=== PATIENT | male | born 1960 | race Two or more races ===

== ENCOUNTER 2016-09-24 09:00 | Observation (INO) | payer OTHER ==
[2016-09-24] MEDS ORDERED: Aspirin Low Dose CHEW TAB* 81 MG PO ONE (09:09)
[2016-09-24 09:28] LABS: Hematocrit 42 % (42-52); Hemoglobin 13.8 g/dl (14.0-18.0); Mean Corpuscular HGB Conc 33 g/dl (31-36); Mean Corpuscular Hemoglobin 29 pg (27-31); Mean Corpuscular Volume 87 fL (80-94); Mean Platelet Volume 8 um3 (7.4-10.4); Red Blood Count 4.75 10^6/ul (4.0-5.4); Red Cell Distribution Width 13 % (10.5-15); White Blood Count 7.6 10^3/ul (3.5-10.8)
--- NOTE | 2016-09-24 09:50 | RAD ---
INDICATION: Dizziness COMPARISON: None TECHNIQUE: An AP portable view obtained at 0930 hours is submitted. FINDINGS: Bones/Soft Tissues: There are no acute bony findings. Cardiomediastinal: The cardiomediastinal silhouette is normal. Lungs: There are no infiltrates. Pleura: There are no pleural effusions. Other: None IMPRESSION: NO ACTIVE DISEASE.
[2016-09-24 10:01] LABS: Troponin I 0.01 ng/mL (<0.04)
[2016-09-24 10:02] LABS: Albumin 4.6 g/dL (3.2-5.2); BUN/Creatinine Ratio 21.1 (8-20); Calcium 9.8 mg/dL (8.6-10.3); EGFR African American 147.6 (>60); EGFR Non-African American 114.8 (>60); Globulin 3.1 g/dL (2-4); Potassium 3.5 mmol/L (3.5-5.0); Total Bilirubin 1.2 mg/dL (0.2-1.0); Total Protein 7.7 g/dL (6.4-8.9)
[2016-09-24] MEDS ORDERED: Ondansetron INJ* 2 MG/ML VIAL IV ONE (10:30)
[2016-09-24] MEDS ORDERED: Ondansetron INJ* 2 MG/ML VIAL ONE (10:31)
--- NOTE | 2016-09-24 11:06 | RAD ---
Indication: Dizziness. Associated nausea and vomiting. Comparison: No relevant prior exams available on the [facility] PACS for comparison. Technique: Noncontrast CT vertex of skull through foramen magnum. Report: The sulci, ventricles, and basal cisterns are normal for age. Toscano matter white matter differentiation is preserved without evidence for edema. No intra or extra axial hemorrhage, mass, or fluid collection detected. Unremarkable visualized orbital contents. Unremarkable calvarium and skull base. Unremarkable scalp. The visualized paranasal sinuses and mastoid air spaces are clear. IMPRESSION: Negative unenhanced head CT.
[2016-09-24] MEDS ORDERED: Meclizine TAB* 12.5 MG PO ONE (11:35)
[2016-09-24] MEDS ORDERED: Ondansetron ODT TAB* 4 MG SL PRN (13:39)
[2016-09-24] MEDS ORDERED: Meclizine TAB* 12.5 MG PO PRN (13:39)
[2016-09-24] MEDS ORDERED: NS 0.9% 1000 ML* 1,000 ML IV SCH (13:45)
[2016-09-24] MEDS ORDERED: Losartan TAB* 25 MG PO SCH (14:00)
[2016-09-24 16:46] VITALS: BP 135/75
--- NOTE | 2016-09-24 16:48 | RAD ---
Indication: Dizziness and vertigo. Image sequences: Sagittal and axial T1, axial T2, FLAIR, diffusion and susceptibility weighted images of the brain were obtained. Ventricular structures are midline. No midline shift is noted. The extraction spaces are unremarkable. Diffusion-weighted images demonstrates no restriction of diffusion. The FLAIR images demonstrates no evidence of vasogenic edema. No susceptibility artifact is noted on the susceptibility weighted images. The paranasal sinuses demonstrates minimal mucosal thickening of the maxillary sinuses bilaterally. Because retention cyst is noted in the right frontal sinus. Orbits are grossly unremarkable. IMPRESSION: No intracranial lesion are noted. Minimal mucosal thickening floor of the maxillary sinuses and mucous retention cyst in the right frontal sinus.
--- NOTE | 2016-09-24 16:50 | HP ---
CC: Dr. Isaacs HISTORY AND PHYSICAL/DISCHARGE SUMMARY: DATE OF ADMISSION: 09/24/16 PRIMARY CARE PHYSICIAN: Dr. Isaacs. CHIEF COMPLAINT: Dizziness, nausea, vomiting. HISTORY OF PRESENT ILLNESS: A 56-year-old male with past medical history of hypertension, diabetes, obstructive nephrolithiasis, who presents to the hospital with dizziness, nausea, and vomiting. The patient states he was in his usual state of health throughout the day yesterday. Around the evening, he was sitting down in his house and occasionally walking around when he felt progression of lightheadedness. He also noticed he felt a little bit off balance. This was followed by some nausea. He states he did not fall. He did not lose consciousness. He went to bed and said he slept well, but he did notice that with certain movements in bed it seemed to worsen his symptoms. Prior to bed, he checked his blood pressure, it was 160/100 followed by 160/89. This morning upon awakening, he noticed symptoms were still present. He had persistent nausea and this morning, he vomited twice after he drink a glass of milk. Emesis was not bloody. He attempted to brush his teeth and noticed that leaning forward seemed to worsen the symptoms and also caused worsening sensation of loss of balance. He states he has had a cough about 2 weeks ago which has been somewhat persistent. He denies any fever or chills. He has had some abdominal discomfort associated with the nausea and vomiting. No diarrhea. He denies any dysuria or bleeding. Symptoms were not associated with any chest pain, shortness of breath, sweating, or palpitations. Due to persistent symptoms, the patient came to the ED. He was evaluated by Dr. Cross who reported that a Brimfield-Hallpike maneuver was negative. He spoke with Dr. Angela, who recommended getting an MRI and observing the patient. PAST MEDICAL HISTORY: Hypertension, diabetes, obstructive nephrolithiasis. PAST SURGICAL HISTORY: Renal stent placement. HOME MEDICATIONS: 1. Metformin 750 mg by mouth 3 times daily. 2. Losartan 100 mg by mouth daily. 3. Actos 30 mg by mouth daily. 4. Atorvastatin 10 mg by mouth daily. ALLERGIES: The patient reports no known drug allergies. FAMILY HISTORY: He states is not remarkable for any medical problems. SOCIAL HISTORY: He never smoked cigarettes. He will have a beer very rarely. He denies any illicit drug use. 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 REVIEW OF SYSTEMS: A 12-point review of systems negative, except for that noted in the HPI. PHYSICAL EXAMINATION GENERAL: The patient is a middle-aged [place] male, lying in bed, in no apparent distress. VITAL SIGNS: On admission, temperature 97.8, heart rate 76, respiratory rate 19 , O2 saturation 100% on room air, initial blood pressure 176/100 followed by 145 /81. HEENT: Moist mucous membranes. Pupils are equal, round, and reactive to light and accommodation. Anicteric sclerae. LUNGS: Clear to auscultation bilaterally. No wheezes, rales, or rhonchi. CARDIOVASCULAR: Regular rate and rhythm. S1, S2 heard. No murmurs, gallops or rubs. ABDOMEN: Soft, nontender, nondistended. Bowel sounds are positive. EXTREMITIES: No cyanosis, clubbing, or edema. NEUROLOGIC: The patient is alert and oriented x3. No focal neurological deficits. No nystagmus noted on exam. I did not repeat Silvana-Hallpike maneuver. LABS AND DIAGNOSTICS: White blood cell count 7.6, hematocrit of 42, platelets of 259. Sodium 138, potassium 3.5, chloride of 101, carbon dioxide of 27, BUN 15, creatinine 0.71, glucose of 168. Lactic acid of 2.1. Total bilirubin of 1.2. LFTs are within normal limits. Troponin 0.00. EKG, personally reviewed, shows normal sinus rhythm. No acute ischemic changes. CT of the head is negative for any acute changes. Chest x-ray, personally reviewed, shows no acute disease. ASSESSMENT AND PLAN: Nausea, vomiting, and dizziness likely due to vertigo in a 56- year-old male with past medical history of hypertension, diabetes, and obstructive nephrolithiasis. 1. Nausea, vomiting, dizziness. The patient's symptoms seem more consistent with vertiginous symptoms rather than presyncopal. He seems to be responding well in the ED to meclizine. His nausea seems to be well controlled. He has eaten a sandwich down in the emergency department. He has also been ambulating fairly well. We will monitor the patient on the floor, give some IV fluids and continue supportive therapy with antiemetics. We will get an MRI of the brain to rule out possible CVA responsible for the patient's symptoms, seems like this is more of a peripheral process. Continue low-dose meclizine as well. 2. Hypertension. Continue the patient's home losartan. 3. Diabetes. Continue metformin. Hold on Actos. 4. Hyperlipidemia. Continue home Lipitor. 5. DVT prophylaxis. Low risk, ambulate. 6. Code status: The patient is a full code. TIME SPENT: Total time spent on this admission 40 minutes, with over half the time spent [id number] with the patient, counseling and coordinating care. ADDENDUM: MRI reviewed, no signs of stroke. Patient with improvement in symptoms , tolerating PO, no further nausea. Will discharge home with rx for meclizine and will need to follow-up with PCP. [id number]/[facility] #: [id number] ADRIEN
[2016-09-25] MEDS ORDERED: Atorvastatin* 10 MG TAB PO SCH (09:00)
[2016-09-25] MEDS ORDERED: metFORMIN* 500 MG TAB PO SCH (09:00)
--- NOTE | 2016-09-27 07:27 | ED ---
sarah Dodd Timothy, scribed for Poli Cross MD on 09/24/16 at 0912 . Dizziness - HPI Summary HPI Summary: Nehemias Robles is a 56 yo male presenting to [facility] with dizziness since 09/23/16 evening at rest; when he awoke this morning he had nausea and vomited 2x. He states he had no difficulty sleeping. His dizziness has persisted , but he states the room is not spinning. He states his dizziness is worse when he stands up. He states this past winter he noticed pain in his right shoulder, but this has resolved. He is not in any current pain, and denies any blurred vision, slurred speech, diaphoresis, CP, SOB, fever, diarrhea, or any other Sx. He states he may have had some exposure to a family member with fever 09/20/16. He took his prescribed medications last night. His MHx includes kidney stones and DM. - History Of Current Complaint Chief Complaint: EDDizziness Stated Complaint: DIZZY Time Seen by Provider: 09/24/16 10:06 Hx Obtained From: Patient Onset/Duration: Still Present Timing: Constant Severity Initially: Moderate Severity Currently: Moderate Character: Dizzy Aggravating Factor(s): Supine To Erect Alleviating Factor(s): Rest Associated Signs And Symptoms: Positive: Nausea, Vomiting - Allergies/Home Medications Allergies/Adverse Reactions: Allergies Allergy/AdvReac Type Severity Reaction Status Date / Time Shellfish Allergy Allergy Itching Verified 12/22/13 15:24 PMH/Surg Hx/FS Hx/Imm Hx Endocrine/Hematology History: Reports: Hx Diabetes History: Reports: Hx Kidney Stones Infectious Disease History: Denies: Traveled Outside the [place] in Last 30 Days - Family History Known Family History: Negative: Cardiac Disease, Hypertension, Diabetes - Social History Alcohol Use: None Hx Substance Use: No Substance Use Type: Reports: None Hx Tobacco Use: No Smoking Status (MU): Never Smoked Tobacco Review of Systems Constitutional: Negative Negative: Fever, Chills, Skin Diaphoresis Eyes: Negative Negative: Erythema ENT: Negative Negative: Sore Throat Cardiovascular: Negative Negative: Palpitations, Chest Pain Respiratory: Negative Negative: Shortness Of Breath, Cough Positive: Vomiting, Nausea. Negative: Diarrhea Genitourinary: Negative Negative: dysuria, hematuria Musculoskeletal: Negative Negative: Edema - legs Skin: Negative Negative: Rash Neurological: Other - dizziness Psychological: Normal All Other Systems Reviewed And Are Negative: Yes Physical Exam - Summary Physical Exam Summary: Constitutional: Well-developed, Well-nourished, Alert. (-) Distressed Skin: Warm, Dry HENT: Eyes: Conjunctiva normal Neck: Musculoskeletal ROM normal neck. (-) JVD, (-) Stridor, (-) Tracheal deviation Cardio: Rhythm regular, rate normal, Heart sounds normal; Intact distal pulses; The pedal pulses are 2+ and symmetric. Radial pulses are 2+ and symmetric. (-) Murmur Pulmonary/Chest wall: Effort normal. (-) Respiratory distress, (-) Wheezes, (-) Rales Abd: Soft. (-) Tenderness, (-) Distension, (-) Guarding, (-) Rebound Musculoskeletal: (-) Edema Lymph: (-) Cervical adenopathy Neuro: Alert, Oriented x3, Strength normal, Cranial nerves II-XII are grossly intact. (-) Dysmetria, (-) Nystagmus, (-) Ataxia by finger to nose testing, (-) Sensory deficit. Negative Rhonberg. Psych: Mood and affect Normal Triage Information Reviewed: Yes Vital Signs On Initial Exam: Initial Vitals Temp Pulse Resp BP Pulse Ox 97.8 F 76 19 176/100 100 09/24/16 09:04 09/24/16 09:04 09/24/16 09:04 09/24/16 09:04 09/24/16 09:04 Vital Signs Reviewed: Yes Diagnostics - Vital Signs Vital Signs Temp Pulse Resp BP Pulse Ox 09/24/16 09:04 97.8 F 76 19 176/100 100 - Laboratory Result Diagrams: 09/24/16 09:12 09/24/16 09:12 Lab Statement: Any lab studies that have been ordered have been reviewed, and results considered in the medical decision making process. - Radiology CXR Xray Interpretation: No Acute Changes - IMPRESSION: NO ACTIVE DISEASE. Radiology Interpretation Completed By: Radiologist - CT brain CT Interpretation: No Acute Changes - IMPRESSION: Negative unenhanced head CT. 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: Both Correctly Best Gaze (Only Horizontal Eye Movement): Normal Visual Field Testing: No Visual Loss Facial Paresis-Pt to Smile & Close Eyes or Grimace Symmetry: Normal/Symmetrical Motor Function - Right Arm: No Drift-Holds 10 Seconds Motor Function - Left Arm: No Drift-Holds 10 Seconds Motor Function - Right Leg: No Drift-Holds 10 Seconds Motor Function - Left Leg: No Drift-Holds 10 Seconds Limb Ataxia-Must be out of Proportion to Weakness Present: Absent Sensory (Use Pinprick to Test Arms/Legs/Trunk/Face): Normal Best Language (Describe Picture, Name Items): No Aphasia Dysarthria (Read Several Words): Normal Extinction and Inattention: No Abnormality Total Score: 0 Dizzy Course/Dx - Course Assessment/Plan: Nehemias Robles is a 56 yo male presenting to [facility] with dizziness since 09/23/16 evening and nausea and vomiting 2x 09/24 morning. In the ED he received ASA, zofran, meclizine. His medication list is reviewed this visit. His EKG suggests no STEMI. His CXR suggests no active disease. Of note is his lactic acid of 2.1. His Brain CT suggests a negative unenhanced head CT. After clinical examination and review of his lab and imaging work as well as discussion with Dr.'s Angela and Lyssa, he morris lbe admitted to [facility]. - Diagnoses Provider Diagnoses: Vertigo, Hypertension - Provider Notifications Discussed Care Of Patient with: 1133 - Dr. Angela (neurology) - discussed Pt condition, recommends Pt be admitted for observation for completion of tests and BP control as well as brain MRI, EKG, and meclizine administration. 1202 - Dr. Omalley (hospitalist) - discussed Pt condition and consult with Dr. Angela , agrees to admit. Instructed by Provider To: Admit As Inpatient Discharge - Discharge Plan Condition: Stable Disposition: ADMITTED TO [facility] Referrals: Danielito Isaacs MD [Primary Care Provider] - 2 Days The documentation as recorded by the sarah ramirez Timothy accurately reflects the service I personally performed and the decisions made by me, Poli Cross MD.
== END 2016-09-24 18:15 | disposition home or self-care (01) ==
LOC: ED 09:00 → MEDTELE 12:05
PROVIDERS: ADMIT Hospitalist; ATTEND Hospitalist
DX: R42 Dizziness and giddiness (principal); I10 Essential (primary) hypertension; E78.5 Hyperlipidemia, unspecified; E11.9 Type 2 diabetes mellitus without complications; Z79.84 Long term (current) use of oral hypoglycemic drugs; Z87.442 Personal history of urinary calculi
CPT/HCPCS: 36415; 70450; 70551; 71010; 80053; 83605; 84484; 85025; 93005; 96361; 96374; 99283; A9270-GY; G0378; J2405

== ENCOUNTER → 2017-02-24 07:38 | Day surgery (SDC) | payer OTHER ==
[~2017-02-24 07:38] MED LIST: Buffered Lidocaine 0.9% SYRIN* 5 ML/SYR SYRINGE INTRADERM ONE; Buffered Lidocaine 0.9% SYRIN* 5 ML/SYR SYRINGE ONE; Dexamethasone IV* 4 MG/ML 1 ML (4 MG) ONE; EPHEDrine (Pressors)* 50 MG/ML VIAL ONE; Famotidine IV* 10 MG/ML 2 ML (20 mg) IV ONE; Famotidine IV* 10 MG/ML 2 ML (20 mg) ONE; Glycopyrrolate IV* 0.2 MG/ML 1 ML VIAL ONE; HYDROmorphone INJ* 1 MG/ML CARPUJECT SYRINGE IV PRN; HYDROmorphone INJ* 1 MG/ML CARPUJECT SYRINGE ONE; KETAMINE HCL* 50 MG/ML 10 ML VIAL ONE; Ketorolac INJ* 30 MG/ML 1 ML VIAL ONE; Lidocaine 2% PF * 5 ML VIAL ONE; Metoclopramide TAB* 10 MG ONE; Metoclopramide TAB* 10 MG PO ONE; Midazolam* 1 MG/ML 5 ML VIAL (5 MG) ONE; Neostigmine Methylsulfate* 2 MG/2 ML SYRINGE ONE; Ondansetron INJ* 2 MG/ML VIAL IV PRN; Ondansetron INJ* 2 MG/ML VIAL ONE; Propofol* 10 MG/ML 20 ML BTL IV PUSH ONE; Rocuronium* 10 MG/ML VIAL ONE; ceFAZolin 2 GM PREMIX (*) 2 GM/50 ML BAG IVPB ONE; fentaNYL* 50 MCG/ML 2 ML VIAL (100 MCG VIAL) ONE; fentaNYL* 50 MCG/ML 5 ML VIAL (250 MCG VIAL) ONE; oxyCODONE/Acetamin 5/325 MG* TAB ONE; oxyCODONE/Acetamin 5/325 MG* TAB PO PRN
[2017-02-24] MEDS: oxyCODONE/Acetamin 5/325 MG* TAB PO PRN ×2 (14:15→16:20)
[2017-02-24] MEDS: fentaNYL* 50 MCG/ML 2 ML VIAL (100 MCG VIAL) IV PRN ×2 (14:17→14:46)
[2017-02-24 16:27] VITALS: BP 123/87
--- NOTE | 2017-02-25 11:05 | OP ---
CC: Flynn Almodovar MD. * DATE OF OPERATION: 02/24/17 - [facility] DATE OF : 60 SURGEON: Srikanth Kirby MD. DIRECTOR OF HEMOPHILIA: DEISY Simpson. ANESTHESIOLOGIST: Dr. Lloyd. ANESTHESIA: General with local. PRE-OP DIAGNOSIS: Large longstanding right inguinal/scrotal hernia. POST-OP DIAGNOSIS: Large longstanding right direct inguinal/scrotal hernia containing a large amount of greater omentum. OPERATIVE PROCEDURE: Open repair with Ethicon extended size Prolene hernia system mesh. ESTIMATED BLOOD LOSS: Minimal. WOUND CLASSIFICATION: I. DRAINS: None. COMPLICATIONS: None. SPECIMENS: Portion of greater omentum. FINDINGS: The patient had a large direct space hernia with large amount of omentum extending down into a hernia sac into the scrotum. There was no indirect hernia noted. INDICATIONS: Mr. Felecia Patino is a very pleasant 56-year-old gentleman with a longstanding right inguinal hernia with a large extension down into the entire right glen scrotum. He has had a CT scan several years ago, which showed mainly fat, i.e., probable omentum. He has had minimal discomfort. He has had no GI or symptoms, but has been seen recently in the office and would like to proceed with an elective repair. His large hernia is nonreducible in the supine position. Procedure was discussed with the patient and the risks were all outlined in the preoperatively transcribed history and physical. Also risks of injury to the spermatic cord and testicle were discussed. DESCRIPTION OF PROCEDURE: Written informed consent was obtained, the right groin was marked with indelible ink and preoperative antibiotics were administered. The patient was taken to the operating room and placed in a supine position. General anesthesia was administered. A Ness catheter was inserted without difficulty. After general anesthesia was administered, I attempted to manually reduce the hernia and was unsuccessful. The lower abdomen, right groin, and entire scrotum and penis were prepped with Betadine and draped within the sterile field. Time-out verification was completed. 0.25% Marcaine was infiltrated in the right lower abdomen and an oblique incision was made several fingerbreadths above the inguinal crease and carried down to the Evi's fascia. We were able to identify the external oblique aponeurosis and as this was removed medially, the obvious external ring, which contained a massive protuberance of hernia extending down into the scrotum. With some persistent dissection, I was able to encircle this hernia as well as the spermatic cord at the pubic tubercle with a one-quarter inch [place] drain. Next, using some pressure from below the scrotum and also dividing the adventitial attenuated cremasteric muscles as well as quite bit of scar tissue, I was able to reduce the hernia up into the field out of the scrotum. I was able to identify the spermatic cord as well and the right testicle remained in the scrotum and was not brought up into the field throughout the remainder of the case. With care, with some difficult dissection which took almost an hour, I was able to free up the hernia sac, from the cord structures. This was quite thickened and once I had completely done this, I made a decision to open the sac to identify its contents and also to assist with reduction as I was not able to reduce the large amount of its contents through the relatively small direct hernia space that was identified with this dissection. The sac was then opened and it appeared that the entire hernia sac outside outside the abdominal cavity contained a large portion of the greater omentum. We were able to follow this up into the neck and with multiple attempts and with different techniques of pressure trying to reduce the greater omentum, I was not able to do this and thus made a decision to remove portion of the omentum and this was done using a LigaSure device and this was then sent for specimen. I removed about half of the omentum that was outside the abdominal cavity and once this was done, I was able to reduce the remainder of the omentum back into the abdominal cavity without difficulty. The direct hernia sac, the peritoneum was then closed with a running 3-0 locked Polysorb suture and I was able to easily reduce this sac back into the peritoneal cavity. Next, I was able to identify the anatomy. The conjoint tendon appeared to be intact and healthy as well as the inguinal ligament. I appreciate no evidence of an indirect hernia. There was some thickened transversalis fascia, which I did excise. At this point, due to the size of the hernia and a complete obliteration of the direct space floor, I felt that a Ethicon Prolene hernia system mesh was the most appropriate for repair. We were able to open up the transversalis more to develop the preperitoneal space. Michael's ligament and the pubic tubercle medially were identified and the fat was swept off of this using a combination of blunt and sharp dissection. Likewise, more superiorly underneath the conjoint tendon, space was developed and I was able to identify and palpate the epigastric vessels, and these were maintained anteriorly, and also care to prevent injury throughout the remainder of the case. Next, the extended size mesh was placed into the preperitoneal space and spread out nicely underneath the conjoint tendon superiorly and this was sutured to the Michael's ligament with the 0 Polysorb suture. It was then spread with its leaflets to cover the more lateral direct space, keeping the epigastric vessels anteriorly and the iliac vessels posterior to cover the hernia defect. This mesh was secured to the conjoint tendon with 2 separate horizontal mattress sutures through and through the conjoint tendon without difficulty as well. This mesh appeared to cover the defect nicely and spread nicely without wrinkling. I then was able to excise a little bit more of the redundant scar tissue along the spermatic cord. The anterior leaflet of the mesh was then sutured to the pubic tubercle medially, the conjoint tendon superiorly, and the inguinal ligament inferiorly to complete this portion of the repair. The leaflets were then divided laterally to permit the cord and these were crossed laterally and sutured to the musculature with 0 Polysorb suture. The mesh appeared to be in good position, sat nicely at both the anterior and posterior leaflets. Hemostasis was assured. Additional Marcaine was infiltrated for postoperative pain management. The external oblique aponeurosis was closed with running 3-0 Polysorb suture. Evi's fascia was closed with a running 3-0 Polysorb suture. The skin was approximated with a subcuticular 4-0 Polysorb suture. Steri-Strips and sterile dressings were applied. Scrotal support was then placed. Also noted after completion of the case that there were two testicles in the scrotum. The patient tolerated the procedure well and was taken to the recovery room in stable condition. [id number]/[facility] #: [id number]
== END | disposition home or self-care (01) ==
LOC: OR 07:38
PROVIDERS: ATTEND Surgery
DX: K40.30 Unilateral inguinal hernia, with obstruction, without gangrene, not specified as recurrent (principal); I10 Essential (primary) hypertension; E11.9 Type 2 diabetes mellitus without complications; Z79.84 Long term (current) use of oral hypoglycemic drugs
CPT/HCPCS: 88305; A9270-GY; C1781; J0690; J1100; J1170; J1885; J2250; J2405; J2704; J3010